=== PATIENT | male | born 1965 | race Hispanic/Latino ===

== ENCOUNTER → 2017-06-12 | Outpatient (CLI) | payer OTHER ==
--- NOTE | 2017-06-12 14:39 | MRI ---
+ EXAM DESCRIPTION: Thoracic Spine w/o Contrast CLINICAL HISTORY: BACK PAIN COMPARISON: MRI scan of the cervical and lumbar spines on the same visit. TECHNIQUE: Multiplanar, multiple standard sequences, non contrast MRI, thoracic spine. Axial images T5-T8 segments. FINDINGS: Approximately 25-30% compression of the central T7 vertebral body with edema-like marrow signal in the mid and anterior vertebral body. Paravertebral soft tissue mass. Left posterior T7-8 endplate spur and small disc protrusion abutting the left ventral cord and moderate narrowing of the left foramen. Moderate canal narrowing to the left of midline. Facets are unremarkable. No marrow edema in the pedicle. No significant retropulsion. T6-7 disc and endplates are unremarkable. Small concavity in the superior T6 endplate but no marrow edema in the vertebra or posterior elements. Minimal disc desiccation T11-12, T9-T10, T 8-9, and T4-5. This is no bulging. Canal and foramina are patent at these levels. Remaining discs demonstrate normal signal. Disc spaces are preserved. Canal and foramina are patent. No scoliosis. Facet joints are unremarkable. Conus terminates at T12-L1. Paravertebral soft tissues are unremarkable at other levels. Normal signal in the cord with no compression. Normal marrow signal in the vertebral bodies and the posterior elements. Vertebral bodies are not compressed at any level. IMPRESSION: 1. Recent compression type vertebral body fracture at T7 with approximately 25-30% loss of height of the central vertebral body. The fracture is stable. No significant retropulsion. Left posterior T7-8 disc protrusion with moderate left foraminal narrowing. No cord compression. 2. Disc desiccation at other levels. No significant disc bulging or protrusion at other levels. Electronically signed by: Manan Tucker MD 06/12/2017 2:38 PM CDT
--- NOTE | 2017-06-12 15:38 | MRI ---
EXAM DESCRIPTION: Lumbar Spine w/o Contrast MRI CLINICAL HISTORY: BACK PAIN COMPARISON: MR scans of the cervical and thoracic spine on this visit. TECHNIQUE: Multiplanar, multiple standard sequences, non contrast MRI, lumbar spine. FINDINGS: L5-S1: Disc desiccation with disc space loss, more severe posteriorly. Modic type II endplate reactive changes in the mid and right endplates. Right side disc osteophyte complex encroaching on the neural foramen and abutting the exiting right L5 nerve. Right posterior 5 mm disc protrusion abutting the descending right S1 nerve. Borderline right paracentral canal stenosis. Broad-based posterior 4 to 5 mm disc bulge. Moderate narrowing of the left foramen abutting the exiting left L5 nerve. Bilateral moderate facet and ligament hypertrophy. L4-5 disc desiccation. Modic type I endplate reactive changes. Posterior broad-based 4 mm disc bulge slightly more bulging in the midline. AP canal diameter 10 11 mm. Moderate to severe inferior right foraminal narrowing and mild to moderate left foraminal narrowing. AP canal diameter 9 to 10 mm. Mild facet and ligament hypertrophy bilaterally. L3-4: Disc desiccation with no significant bulging. Bilateral pedicle narrowing with moderate canal narrowing. Bilateral posterior ligament hypertrophy. Bilateral mild foraminal narrowing. L2-3: Minimal disc desiccation but no bulging. Minimal ligament hypertrophy bilaterally. Mild canal narrowing. Bilateral foramina are patent. L1-2: Normal disc with disc space preserved and no bulging. Canal and foramina are patent. T12-L1 disc with normal signal and disc space preserved. Canal and foramina are patent. Conus terminates at T12-L1. Paravertebral soft tissues are unremarkable.. Normal marrow signal in the remaining vertebral bodies and the posterior elements. Vertebral bodies are not compressed at any level. IMPRESSION: 1. Moderate spondylosis L5-S1 involving the posterior and right side disc space. Disc spur complex encroaching on the right foramen and possible impingement on the right L5 nerve. Foraminal stenosis. Posterior disc spur complex in the canal resulting in borderline canal stenosis. Narrowing of the left foramen. 2. Spondylosis posterior L4-5 disc space with disc bulge and thickened ligaments resulting in mild canal stenosis. Bilateral foraminal narrowing. 3. L3-4 disc desiccation with bony canal narrowing and foraminal narrowing. Electronically signed by: Manan Tucker MD 06/12/2017 3:36 PM CDT
--- NOTE | 2017-06-12 16:45 | MRI ---
EXAM DESCRIPTION: Cervical Spine: MRI, without contrast. CLINICAL HISTORY: BACK PAIN COMPARISON: MR scans of the thoracic and lumbar spine on the same visit. TECHNIQUE: Multiplanar MRI, multiple sequences, non-contrast High-field. FINDINGS: C6-7: Disc desiccation. Left posterior 4 mm disc protrusion impressing on the left ventral cord and displacing the left C7 nerve. Left uncinate spur and minimal hypertrophy of the left facet are contributing to mild to moderate left neural foraminal stenosis. Left side disc osteophyte complex also is a factor. Left paracentral mild to moderate canal stenosis. Right uncinate spur and moderate to severe neural foraminal narrowing, possibly abutting the right C7 nerve. Right facet normal. C5-6: Disc desiccation. Posterior broad-based 3 mm bulge abutting the cord. Left paracentral 4 mm disc protrusion with endplate spurs impressing on the left C6 nerve. Uncinate spur contributing to left neural foraminal stenosis. Minimal ligament hypertrophy. Minimal facet narrowing. Minimal narrowing of the right neuroforamen with normal right facet. Right uncinate spur. Normal signal in the remaining discs with no bulging. Minimal anterior bulging of the C3-4 disc. Disc spaces preserved. Canal and neural foramina are patent. Facets normal. No cord compression or cord edema. Spine is normally lordotic. Atlantoaxial joint is unremarkable. Base of the cerebellar tonsils is above the foramen magnum. Paravertebral soft tissues unremarkable. Vertebral bodies are not compressed at any level. Normal marrow signal in the remaining vertebral bodies and the posterior elements. IMPRESSION: 1. Protrusion of the C5-6 disc with spurs into the left canal and left neuroforamen abutting the left ventral cord and impinging the left C6 nerve. Left neural foraminal stenosis. 2. Protrusion of the C6-7 disc with spurs anteriorly the left anterior spinal canal, impressing on the left ventral cord and impinging the left C7 nerve. Left neural foraminal stenosis. Right side uncinate spur and disc bulge abutting the right C7 nerve, correlate for radiculopathy. Electronically signed by: Manan Tucker MD 06/12/2017 4:44 PM CDT
== END ==
LOC: MRI 09:00
PROVIDERS: ATTEND Family Medicine
DX: S22.060A Wedge compression fracture of T7-T8 vertebra, initial encounter for closed fracture (principal); M51.24 Other intervertebral disc displacement, thoracic region; M50.220 Other cervical disc displacement, mid-cervical region, unspecified level; M47.897 Other spondylosis, lumbosacral region; M54.9 Dorsalgia, unspecified

== ENCOUNTER → 2019-02-18 | Outpatient (CLI) | payer OTHER ==
--- NOTE | 2019-02-19 11:17 | MRI ---
EXAM DESCRIPTION: Cervical Spine: MRI. 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 TECHNIQUE: Multiplanar, high-field MRI, multiple sequences, non-contrast Cervical spine. FINDINGS: C2-C3: Normal signal in the disc and disc space preserved. Hypertrophic right facet arthrosis with moderate neural foraminal narrowing. Canal and left neuroforamen are patent. Stable since the prior study. C5-C6: Disc desiccation and minimal disc space loss. Posterior broad-based bulge more to the right of midline. Abutting the cord. Left uncinate spur and borderline neural foraminal stenosis. Moderate canal narrowing. Right neural foramina is patent. Bilateral facets are unremarkable. No change from the prior study. C6-C7: Disc desiccation and minimal disc space loss. Left posterior disc protrusion impressing on the left ventral cord and the left C7 nerve. Moderate left paracentral canal stenosis. Posterior endplate reaction. Posterior flavum ligament thickening. Bilateral uncinate spurs with bilateral neural foraminal stenosis. Unchanged from the prior study. C7-T1: Minimal arthrosis and hypertrophy of the left facet. Disc and disc space unremarkable. Canal and neural foramina are patent. Normal signal in the C3-C4, C4-C5, and T1-T2 discs, with no bulging. Disc spaces preserved. Canal and neural foramina are patent. Facet joints negative. Spinal alignment reduced lordosis.. No cord compression or cord edema. Atlantoaxial joint negative. Base of the cerebellar tonsils is above the foramen magnum. Paravertebral soft tissues unremarkable. Vertebral bodies are not compressed at any level. Normal marrow signal in the remaining vertebral bodies and the posterior elements. IMPRESSION: 1. Left posterior C6-C7 disc protrusion impressing on the left ventral cord and the left C7 nerve root. Left paracentral canal stenosis and bilateral neural foraminal stenosis. Stable since the prior study. 2. Posterior broad-based C5-C6 disc bulge and to the right of midline. Left uncinate spur. Left borderline neural foraminal stenosis. No change from the prior study. Electronically signed by: Manan Tucker MD 02/19/2019 11:15 AM CDT
== END ==
LOC: MRI 13:45
PROVIDERS: ATTEND Specialist
DX: M99.31 Osseous stenosis of neural canal of cervical region (principal); M50.923 Unspecified cervical disc disorder at C6-C7 level; M46.02 Spinal enthesopathy, cervical region